=== PATIENT | female | born 1995 | race Caucasian/White ===

== ENCOUNTER 2021-07-08 21:23 | Inpatient (IN) | payer OTHER, SELFPAY ==
[2021-07-08] VITALS (44 sets, daily range): BP systolic 85–142; BP diastolic 60–97; PULSE 63–164; RESP 18; TEMP 36.9; O2SAT 96–100; BMI 36.7
[2021-07-08] MEDS: LACTATED RINGERS 1,000 ML 999 ML (21:57)
[2021-07-08 21:59] LABS: Basophils Percent Auto 0.2 % (0.2-1.2); Eosinophils Absolute Auto 0.1 K/mm3 (0-0.3); Eosinophils Percent Auto 0.9 % (0-4.4); Hematocrit 36.4 % (37.0-47.0); Hemoglobin 12.8 g/dL (12.0-15.0); Immature Granulocyte Absolute 0.04 K/mm3 (0.00-0.031); Immature Granulocyte Percent A 0.3 % (0-0.5); Lymphocytes Absolute Auto 2.27 K/mm3 (0.9-3.2); Lymphocytes Percent Auto 18.6 % (18.3-44.2); Mean Corpuscular HGB Conc 35.2 g/dl (32-36); Mean Corpuscular Hemoglobin 33.7 pg (26-34); Mean Corpuscular Volume 95.8 fl (80-100); Mean Platelet Volume 9.2 fl (7.4-10.4); Monocytes Absolute Auto 0.8 K/mm3 (0.1-0.6); Monocytes Percent Auto 6.8 % (2.6-8.5); Neutrophils Absolute Auto 8.9 K/mm3 (1.3-6.7); Neutrophils Percent Auto 73.2 % (45.5-73.1); Platelet Count Result 235 k/mm3 (150-375); Red Cell Distribution Width 12.9 % (11.5-14.5); White Blood Count 12.2 K/mm3 (4.5-10.0)
--- NOTE | 2021-07-08 22:06 | LDADM ---
This patient, Lisa Coates, was admitted to Labor/Delivery/Recovery 107 on 07/08/21 at 21:23. Plans for labor, pain management and were discussed with patient. Patient/family oriented to hospital policies and general routines including ID bracelet, bed and alarms, visiting hours, pain management, procedures, bathroom and other care routines, personal items, smoking policy, room service/diet and guest tray routines, security routines, and visiting hours. Patient/Family are encouraged to report perceived risks to care and to ask questions if they do not understand what they are told or what they should do. See OBIX for further documentation.
--- NOTE | 2021-07-08 22:34 | WPDANESEPPF ---
Anes - Initial Pre Proc Eval Procedure: labor epidural Date/Time: 07/08/21 22:34 Surgeon: Wally Argueta MD Pre Op Diagnosis: labor pain Pre Op Diagnosis: Leaking Fluid Patient Data Age: 26 Gender: F Height: 1.68 m Weight: 103.2 kg Last Vital Signs Temp 36.9 C 07/08/21 22:08 Pulse 72 07/08/21 22:34 Resp 18 07/08/21 22:08 BP 132/78 07/08/21 22:34 Pulse Ox 99 07/08/21 22:31 Allergies Allergy/AdvReac Type Severity Reaction Status Date / Time No Known Allergies Allergy Verified 07/01/21 12:35 Home Medications Medication Instructions Recorded Confirmed Type PNV cmb#95-ferrous fumarate-FA 1 tablet PO DAILY 07/01/21 07/08/21 History [] Laboratory Tests 07/08/21 07/08/21 21:49 21:49 WBC 12.2 K/mm3 H K/mm3 (4.5-10.0) RBC 3.80 M/mm3 L M/mm3 (4.2-5.4) Hgb 12.8 g/dL g/dL (12.0-15.0) Hct 36.4 % L % (37.0-47.0) MCV 95.8 fl fl (80-100) MCH 33.7 pg pg (26-34) MCHC 35.2 g/dl g/dl (32-36) RDW 12.9 % % (11.5-14.5) Plt Count 235 k/mm3 k/mm3 (150-375) MPV 9.2 fl fl (7.4-10.4) Immature Gran % (Auto) 0.3 % % (0-0.5) Neut % (Auto) 73.2 % H % (45.5-73.1) Lymph % (Auto) 18.6 % % (18.3-44.2) [place] % (Auto) 6.8 % % (2.6-8.5) Eos % (Auto) 0.9 % % (0-4.4) Baso % (Auto) 0.2 % % (0.2-1.2) Lymph # (Auto) 2.27 K/mm3 K/mm3 (0.9-3.2) [place] # (Auto) 0.8 K/mm3 H K/mm3 (0.1-0.6) Eos # (Auto) 0.1 K/mm3 K/mm3 (0-0.3) Baso # (Auto) 0.0 K/mm3 K/mm3 (0.0-0.1) Abs Immat Gran (auto) 0.04 K/mm3 H K/mm3 (0.00-0.031) Absolute Neuts (auto) 8.9 K/mm3 H K/mm3 (1.3-6.7) Absolute Nucleated RBC 0.0 K/mm3 K/mm3 (0.0-0.012) Nucleated RBC % 0.0 % % (0.0-0.2) RPR Pending Patient hx anesthesia problems: none Family hx anesthesia problems: none Results Review: All pre-operative results and documents have been reviewed as part of the pre-operative evaluation. [facility] Family History Family History (Updated 07/01/21 @ 12:36 by Leisa Garcia RN) Sibling Epilepsy Social History Social History Smoking status: Never smoker Substance use: never Spiritual care concerns: No Anes - Eval Final PreProcedure Day of Procedure 07/08/21 22:34 Patient weight: obese ASA classification: II Anesthetic plan: proceed Anesthesia type and monitoring: regional epidural and standard monitoring Results Review: All pre-operative results and documents have been reviewed as part of the pre-operative evaluation. Informed Consent: The patient's anesthetic plan and its attendant risks and benefits were discussed with the patient/family/POA. Questions were solicited and answers provided to the satisfaction of the patient/family/POA.
[2021-07-09] VITALS (57 sets, daily range): BP systolic 95–141; BP diastolic 52–90; PULSE 65–134; RESP 16–18; TEMP 36.4–37.2; O2SAT 97–100
--- NOTE | 2021-07-09 00:23 | PM.IMHP ---
H&P: HPI History of Present Illness Date/Time: 07/09/21 00:23 26-year-old 1 para 0 last menstrual period unknown, EDC is 07/19/2021 confirmed by 11 week ultrasound presents at term in active labor. Her has been uncomplicated she is negative for group B strep. She admission she 6cm and heart tones are reassuring she spontaneously ruptured on admission Chief Complaint: term in active labor Review of Systems Review of Systems: All systems reviewed & are unremarkable except as noted in HPI and below PMFSH Family History Family History Sibling Epilepsy Social History Social History Smoking status: Never smoker Substance use: never Spiritual care concerns: No Meds Home Medications and Allergies Home Medications Medication Instructions Recorded Confirmed Type PNV cmb#95-ferrous fumarate-FA 1 tablet PO DAILY 07/01/21 07/08/21 History [] Allergies Allergy/AdvReac Type Severity Reaction Status Date / Time No Known Allergies Allergy Verified 07/01/21 12:35 Vital Signs Vital Signs - 24 hr 07/08/21 21:46 07/08/21 22:01 07/08/21 22:02 Temperature Pulse Rate 95 77 66 Respiratory Rate Blood Pressure 124/87 113/91 H 134/87 Pulse Oximetry 07/08/21 22:08 07/08/21 22:16 07/08/21 22:21 Temperature 98.5 F Pulse Rate 83 Respiratory Rate 18 Blood Pressure 135/89 Pulse Oximetry 98 99 07/08/21 22:24 07/08/21 22:26 07/08/21 22:28 Temperature Pulse Rate 71 67 Respiratory Rate Blood Pressure 129/83 133/78 Pulse Oximetry 100 07/08/21 22:30 07/08/21 22:31 07/08/21 22:34 Temperature Pulse Rate 70 71 72 Respiratory Rate Blood Pressure 137/77 130/78 132/78 Pulse Oximetry 99 07/08/21 22:36 07/08/21 22:37 07/08/21 22:40 Temperature Pulse Rate 80 73 Respiratory Rate Blood Pressure 132/73 119/60 Pulse Oximetry 99 07/08/21 22:41 07/08/21 22:43 07/08/21 22:46 Temperature Pulse Rate 73 69 Respiratory Rate Blood Pressure 120/66 124/69 Pulse Oximetry 100 99 07/08/21 22:49 07/08/21 22:51 07/08/21 22:52 Temperature Pulse Rate 65 71 Respiratory Rate Blood Pressure 128/63 115/62 Pulse Oximetry 99 07/08/21 22:55 07/08/21 22:56 07/08/21 22:58 Temperature Pulse Rate 64 80 Respiratory Rate Blood Pressure 118/63 127/72 Pulse Oximetry 98 07/08/21 23:01 07/08/21 23:04 07/08/21 23:06 Temperature Pulse Rate 93 164 H Respiratory Rate Blood Pressure 120/64 85/66 L Pulse Oximetry 99 99 07/08/21 23:07 07/08/21 23:11 07/08/21 23:16 Temperature Pulse Rate 89 79 Respiratory Rate Blood Pressure 100/65 113/72 Pulse Oximetry 100 100 07/08/21 23:21 07/08/21 23:26 07/08/21 23:31 Temperature Pulse Rate 86 Respiratory Rate Blood Pressure 121/89 Pulse Oximetry 100 100 100 07/08/21 23:34 07/08/21 23:37 07/08/21 23:39 Temperature Pulse Rate Respiratory Rate Blood Pressure Pulse Oximetry 100 100 100 07/08/21 23:40 07/08/21 23:42 07/08/21 23:45 Temperature Pulse Rate Respiratory Rate Blood Pressure Pulse Oximetry 100 100 100 07/08/21 23:46 07/08/21 23:49 07/08/21 23:54 Temperature Pulse Rate Respiratory Rate Blood Pressure 142/97 H Pulse Oximetry 96 100 07/08/21 23:56 07/08/21 23:58 07/09/21 00:01 Temperature Pulse Rate 77 Respiratory Rate Blood Pressure 141/52 H Pulse Oximetry 98 98 07/09/21 00:03 07/09/21 00:08 07/09/21 00:13 Temperature Pulse Rate Respiratory Rate Blood Pressure Pulse Oximetry 100 100 100 07/09/21 00:18 Temperature Pulse Rate Respiratory Rate Blood Pressure Pulse Oximetry 100 Exam Const: General: no acute distress Eyes: General: appearance normal, both eyes and all related structu
--- NOTE | 2021-07-09 00:25 | PM.OBPRVD ---
OB - Delivery Note Procedure Delivery date: 07/09/21 Procedure: spontaneous vaginal delivery Intrapartal events: None Induction method: none Delivery monitor: external FHT Route of delivery: Episiotomy description: None Laceration Description: Perineal - 2nd Degree Delivery repair: vicryl Specimen: No Quantitative Blood Loss (ml): 58 Anesthesia type: Epidural Disposition: floor [place] Baby Date of : 07/09/21 Time of : 00:10 Weeks of gestation at delivery: 38 gender: Female Weight (pounds): 6 Weight (ounces): 11 presentation: vertex position: Right Occiput Anterior Placenta delivery description: Spontaneous cord vessel description: 3 Vessels score one minute: 9 score five minutes: 9
[2021-07-09] MEDS: LACTATED RINGERS 1,000 ML 125 ML IV CONT (00:48)
[2021-07-09] MEDS: OXYTOCIN 30 UNITS/NS 500 ML 30 UNITS/500 ML BAG 125 UNITS IV CONT ×2 (00:49→00:51)
[2021-07-09] MEDS: WITCH HAZEL 40 PADS 1 PAD TOPICAL (03:15)
[2021-07-09] MEDS: BENZOCAINE 20% AER SPR (*SP) 56 GM CAN 1 SPRAY TOPICAL (03:15)
--- NOTE | 2021-07-09 03:30 | OBPPTRN ---
Patient transferred to post room #286 via wheelchair. Support person present. Oriented to unit, room, information board, rooming in, admission packet and security measures. Patient verbalizes understanding.
--- NOTE | 2021-07-09 08:50 | PC.NURSE ---
Mother called out for assist with feeding. Mother reports infant is sleepy and makes eager attempts to latch with a few bursts of nursing. Mother used a nipple shield for the first feeding. Infant is able to freely thrust tongue past gum ridge and flange both lips. Skin is intact on both nipples, no redness and bruising noted. Nipple care reviewed of lanolin after feedings, warm compresses as needed. Reviewed infant feeding cues, frequencies, duration of feedings, feeding elimination flow sheet, and signs of adequate intake. Demonstrated stimulation techniques to wake infant for feeding. Assisted with to breast. Reviewed positioning/alignment in cross cradle, holding breast in ?U? hold and guided asymmetrical latch on. Reviewed rational for each. was unable to latch correctly or draw nipple in without shield. Discussed nipple shield use and how shield may assist with latch. Reviewed nipple shield precautions and possible complications. Instructions given on application and cleaning of shield. Patient able to return demonstration on proper application of shield. Discussed the need to initiate pumping if infant continues to nurse with the shield. Patient verbalizes understanding. With shield in place, infant able to latch correctly within a few attempts. nursed sleepily with a few bursts and and returning to sleep. Attempt for 15 minutes. Feeding options discussed, Feeding Plan is for mother to put infant to breast each feeding for up to 15 minutes, then pace feed supplement 20 mls and pump for 10-15 minutes. Parents are comfortable with supplementation and pumping. If infant begins to nurse effectively with long draws and frequent swallowing noted, may decrease supplementation and discontinue pumping. Suggested mother have LC test and research reactor operator observe feeding before discontinuing supplementation. Discussed increasing supplementation as infant requires to satisfactions. Reviewed paced feeding and suggested to stop when infant is satisfied, as long as is having required output. With increased supplementation may not want to feed for 4 hours. Mother will continue to pump on infant feeding schedule and will increase session to 20 minutes if pumping every 4 hours. Instructed mother to call out for RN assistance if she is unable to latch infant for feeding or she has discomfort with nursing. Instructed feeding should be initiated three hours from start of last feeding or if feeding cues are noted before. Mother voiced understanding of information shared.
[2021-07-09] MEDS: DOCUSATE SODIUM 100 MG CAPSULE PO (12:04)
[2021-07-09] MEDS: IBUPROFEN 600 MG TABLET PO (12:04)
--- NOTE | 2021-07-09 12:05 | PC.NURSE ---
Mother called out for assist with feeding. Assisted with to breast. Reviewed positioning/alignment in cross cradle, holding breast in ?U? hold and guided asymmetrical latch on. Reviewed rational for each. Infant was unable to latch correctly or draw nipple in without shield. With shield in place, infant able to latch correctly within a few attempts. nursed sleepily with a several bursts of suckling followed with long pausing. Advised to stimulate to keep infant awake and nursing for increased intake, increased stimulation and to assist with maintaining deep latch. Feeding options discussed, Feeding Plan is for mother to put infant to breast each feeding for up to 15 minutes, then pace feed supplement 20 mls and pump for 10-15 minutes. Parents are comfortable with supplementation and pumping. Discussed the difference of effective vs ineffective feeding. Reviewed requires supplementation after all feedings. She is latching with good burst of suckling, she is not feeding consistently with adequate milk transfer at this time and continues to need to be supplement after . Parents are comfortable with supplementation after feedings until infant is feeding effectively. Instructed mother to call out for RN assistance if she is unable to latch for feeding or she has discomfort with nursing. Instructed feeding should be initiated three hours from start of last feeding or if feeding cues are noted before. Mother voiced understanding of information shared.
--- NOTE | 2021-07-09 12:35 | PC.NURSE ---
Breast pump provided due to nipple shield use/ineffective feeding. Instructions given on breast pump care and usage, pumping schedule, nipple care, and collection and storage of breast milk. Encouraged [id number], breast massage and manual expression to stimulate supply. Assessed patient for correct flange size, placement and draw. Patient verbalizes and demonstrates understanding of instructions.
[2021-07-09] MEDS: ACETAMINOPHEN 325 MG TABLET 650 MG PO (21:56)
[2021-07-10 00:10] VITALS: BP 121/79; PULSE 77; RESP 16; TEMP 37.2; O2SAT 99
[2021-07-10] MEDS: WITCH HAZEL 40 PADS 1 PAD TOPICAL (01:23)
[2021-07-10] MEDS: DOCUSATE SODIUM 100 MG CAPSULE PO (03:03)
[2021-07-10] MEDS: IBUPROFEN 600 MG TABLET PO ×2 (04:09→13:42)
[2021-07-10 04:50] LABS: Hematocrit 32.3 % (37.0-47.0); Hemoglobin 10.7 g/dL (12.0-15.0)
--- NOTE | 2021-07-10 07:44 | PM.OBPNVD ---
OB - PN: Subj Subjective Date/time seen: 07/10/21 07:44 Patient comments: no complaints and pain well controlled baby status: doing well and nursing well OB - PN: Obj Data Labs CBC & Chem 7: 07/10/21 04:05 Labs: Laboratory Results - last 24 hr 07/10/21 04:05 Hgb 10.7 L Hct 32.3 L OB - PN A/P Plan day: 1 Plan: routine care Time Spent With Patient Time: Total time spent is greater than 50% in coordination of care (as documented) at patient's floor/unit and/or counseling patient: Time with patient: less than 15 minutes Review of Systems Review of Systems: All systems reviewed & are unremarkable except as noted in HPI and below Exam Const: General: no acute distress Eyes: General: appearance normal, both eyes and all related structures Neck: Neck: supple and no JVD Thyroid: thyroid normal Resp: Effort & Inspection: normal respiratory effort Auscultation: clear to auscultation bilaterally Cardio: Rate: regular rate Rhythm: regular rhythm GI: Inspection: non-distended GI Palp: Yes Soft to palpation, No Tenderness to palpation present (GI) and No Guarding due to palpation present (GI) Auscultation: normal bowel sounds : General: Yes bladder normal to palpation External Female Exam: normal external appearance Speculum Exam - Vagina: normal vaginal discharge and No vaginal bleeding Speculum Exam - Cervix: nontender Bimanual exam- vagina & uterus: bladder normal to palpation and No Cervical tenderness present OB/external & speculum: No vaginal bleeding Skin: General skin exam: no rashes or lesions noted Extrem: General: normal to inspection and no edema Psych: Mental Status: mental status grossly normal Affect: normal affect
[2021-07-10 08:00] VITALS: BP 100/68; PULSE 60; RESP 16; TEMP 36.4; O2SAT 98
--- NOTE | 2021-07-10 09:00 | PC.NURSE ---
Mother called out for assist with feeding. Mother reports infant is sleepy and makes eager attempts to latch with bursts of nursing and will then fall sleep at breast with nipple shield in her mouth. Mother is unable to latch infant without shield. Mother is supplementing after each feeding followed with 15 minutes of pumping. Left nipple has a scab line across nipple from shallow latch.. Nipple care reviewed of lanolin after feedings, warm compresses as needed, gel pads provided and reviewed care and cleaning. Reviewed feeding cues, frequencies, duration of feedings, feeding elimination flow sheet, and signs of adequate intake. Demonstrated stimulation techniques to wake for feeding. Assisted with infant to breast. Reviewed positioning/alignment in cross cradle, holding breast in ?U? hold and guided asymmetrical latch on. Reviewed rational for each. Infant was able/unable to latch correctly with shield. nursed eagerly, with steady draws for short burst and followed with long pausing. Reviewed signs of a correct latch, effective nursing and suck swallow ratio. Infant was able to maintain latch without discomfort to mother. Suggested mother stimulate while feeding to increase stimulate, increase intake and to assist with maintaining deep latch. Demonstrated how to adjust latch more deeply while feeding if needed. responded with bursts of suckling. Discussed the difference of effective vs ineffective feeding. Reviewed infant is latching with good burst of suckling, she is not feeding consistently with adequate milk transfer at this time and continues to need supplement after . Feeding Plan is for mother to put infant to breast each feeding for up to 15 minutes, then pace feed supplement 20 mls and pump for 10-15 minutes. Parents are comfortable with supplementation and pumping. If infant begins to nurse effectively with long draws and frequent swallowing noted, may decrease supplementation and discontinue pumping. Suggested mother have LC power brake operator observe feeding before discontinuing supplementation. Discussed increasing supplementation as infant requires to satisfactions. Reviewed paced feeding and suggested to stop when is satisfied, as long as infant is having required output. With increased supplementation infant may not want to feed for 4 hours. Mother will continue to pump on feeding schedule and will increase session to 20 minutes if pumping every 4 hours. Instructed mother to call out for RN assistance if she is unable to latch infant for feeding or she has discomfort with nursing. Instructed feeding should be initiated three hours from start of last feeding or if feeding cues are noted before. Mother voiced understanding of information shared
--- NOTE | 2021-07-10 09:59 | WPDANLDPN2 ---
Anes-Prog Note L&D Date/Time: 07/10/21 09:59 Comfortable throughout: labor and delivery Neuraxial method: epidural Epidural/Spinal procedure site: clean & non-tender Neuro status: Neuro function grossly intact. Cardiovascular status: normal Respiratory status: normal Airway patency: baseline Mental status: baseline Post-Op hydration status: normal Vital Signs: Last Vital Signs Temp 36.4 C 07/10/21 08:00 Pulse 60 07/10/21 08:00 Resp 16 07/10/21 08:00 BP 100/68 07/10/21 08:00 Pulse Ox 98 07/10/21 08:00 Pain score (VAS): 0 Post-procedural complaints: none Patient feedback: Patient satisfied with anesthetic care.
[2021-07-10 19:50] VITALS: BP 120/76; PULSE 72; RESP 16; TEMP 36.9; O2SAT 100
[2021-07-10] MEDS: MULTIVIT/MIN/PREN/FOL AC/IRON TABLET 1 TAB PO (21:26)
[2021-07-10] MEDS: ACETAMINOPHEN 325 MG TABLET 650 MG PO (21:36)
--- NOTE | 2021-07-10 21:50 | PC.NURSE ---
Patient viewed the discharge video Mother & Baby Care, The First Two Weeks . Patient was given the opportunity and encouraged to ask questions. Patient verbalized understanding of information shared and has been given the mother/baby guide for home reference.
--- NOTE | 2021-07-11 07:42 | PM.DS ---
DS: Admitting Diagnosis Discharge Date 07/10/2021 Admitting Diagnosis term in active labor DS: Summary Hospital Course Hospital Course: patient was admitted in active labor and underwent spontaneous vaginal delivery. Her hospital course unremarkable. For 48hours she remained afebrile. She was up, ambulating, voiding without difficulty, and generally without complaints Time Spent with Patient Time attestation: Total time spent providing and/or coordinating discharge services: Exam Const: General: no acute distress Eyes: General: appearance normal, both eyes and all related structures Neck: Neck: supple and no JVD Thyroid: thyroid normal Resp: Effort & Inspection: normal respiratory effort Auscultation: clear to auscultation bilaterally Cardio: Rate: regular rate Rhythm: regular rhythm GI: Inspection: non-distended GI Palp: Yes Soft to palpation, No Tenderness to palpation present (GI) and No Guarding due to palpation present (GI) Auscultation: normal bowel sounds : General: Yes bladder normal to palpation External Female Exam: normal external appearance Speculum Exam - Vagina: normal vaginal discharge and No vaginal bleeding Speculum Exam - Cervix: nontender Bimanual exam- vagina & uterus: bladder normal to palpation and No Cervical tenderness present OB/external & speculum: No vaginal bleeding Skin: General skin exam: no rashes or lesions noted Extrem: General: normal to inspection and no edema Psych: Mental Status: mental status grossly normal Affect: normal affect Discharge Plan Discharge Attending physician on discharge: Wally Argueta Discharging Clinician: Wally Argueta Patient Disposition: Home, Self-Care Activity: may shower, no straining and pelvic rest Diet: heart healthy Wound Care Instructions: follow printed instructions Patient Instructions: Antibiotic Form Stand Alone Forms: General Discharge Information Follow-up/Referrals: Wally Argueta MD [Physician] - Discharge Medications: Continued PNV cmb#95-ferrous fumarate-FA [] 28 mg iron- 800 mcg Tablet 1 tablet PO DAILY RF: 0 Date of admission: 07/08/21 21:23 Primary Care Provider: Rai Jacobson Admitting Provider: Wally Argueta Attending physician on admission: Wally Argueta Condition: Stable
--- NOTE | 2021-07-11 07:44 | PM.OBPNVD ---
OB - PN: Subj Subjective Date/time seen: 07/11/21 07:44 Patient comments: no complaints and pain well controlled baby status: doing well and nursing well OB - PN: Obj Data Labs CBC & Chem 7: 07/10/21 04:05 OB - PN A/P Plan day: 2 Plan: routine care, discharge home and follow up 6 weeks Time Spent With Patient Time: Total time spent is greater than 50% in coordination of care (as documented) at patient's floor/unit and/or counseling patient: Time with patient: less than 15 minutes Review of Systems Review of Systems: All systems reviewed & are unremarkable except as noted in HPI and below Exam Const: General: no acute distress Eyes: General: appearance normal, both eyes and all related structures Neck: Neck: supple and no JVD Thyroid: thyroid normal Resp: Effort & Inspection: normal respiratory effort Auscultation: clear to auscultation bilaterally Cardio: Rate: regular rate Rhythm: regular rhythm GI: Inspection: non-distended GI Palp: Yes Soft to palpation, No Tenderness to palpation present (GI) and No Guarding due to palpation present (GI) Auscultation: normal bowel sounds : General: Yes bladder normal to palpation External Female Exam: normal external appearance Speculum Exam - Vagina: normal vaginal discharge and No vaginal bleeding Speculum Exam - Cervix: nontender Bimanual exam- vagina & uterus: bladder normal to palpation and No Cervical tenderness present OB/external & speculum: No vaginal bleeding Skin: General skin exam: no rashes or lesions noted Extrem: General: normal to inspection and no edema Psych: Mental Status: mental status grossly normal Affect: normal affect
[2021-07-11] MEDS: MULTIVIT/MIN/PREN/FOL AC/IRON TABLET 1 TAB PO (08:10)
[2021-07-11] MEDS: DOCUSATE SODIUM 100 MG CAPSULE PO (08:10)
[2021-07-11] MEDS: IBUPROFEN 600 MG TABLET PO (08:10)
--- NOTE | 2021-07-11 08:30 | PC.NURSE ---
Observed mother is able to independently latch infant with appropriate positioning/alignment. She denies any nipple discomfort, is feeding as required and waking infant to feed if needed. is more awake and making eager attempts with and maintaining latch. Infant will eagerly nurse the first 5-10 minutes then fall asleep at breast maintaining good latch. Mother is attempting latch without shield infant is unable to latch and draw nipple in deeply. Mother will complete feeding using shield. has had a few effective feedings in the past 24 hours, all feedings infant is supplemented. Infant is currently meeting outcomes for weight, output, jaundice and feeding frequencies. Mother continues to pump after all feedings without difficulties or discomfort. Mother has a pump for home use, assisted mother with use before discharge. Mother is now pumping 20-30 mls each session. Discussed the difference of effective vs ineffective feeding. Reviewed requires supplementation after all feedings. She is latching with good burst of suckling, she is not feeding consistently with adequate milk transfer at this time and continues to need to be supplement after . Feeding plan discussed: Feeding Plan is for mother to put infant to breast each feeding for up to 15 minutes, then pace feed supplement 25-30 mls and pump for 10-15 minutes. Mother will allow infant to be at each breast up to 20 minutes if effective feeding is noted. Discussed increasing supplementation as infant requires to satisfactions. Reviewed paced feeding and suggested to stop when infant is satisfied, as long as infant is having required output. With increased supplementation may not want to feed for 4 hours. Mother will continue to pump on infant feeding schedule and will increase session to 20 minutes if pumping every 4 hours. If begins to nurse effectively with long draws and frequent swallowing noted, may decrease supplementation and discontinue pumping. Advised not to discontinue supplement until a pre/post feeding evaluation by infant PCP, Follow up RN or LC is completed. Mother states she feels confident to continue feeding plan at home. Reviewed transition to breast milk, signs of adequate intake, and engorgement/relief. Instructed to call ICP if intake/output less than required. Reviewed regular medications mother is taking. Information provided per Tarsha. Reviewed community resources on the [facility] website and in the Mom[employer]Baby guide. Information on outpatient services provided. Mother has no further questions at this time.
[2021-07-11 08:35] VITALS: BP 118/74; PULSE 81; RESP 18; TEMP 36.8; O2SAT 98
[2021-07-12 07:19] LABS: Rapid Plasma Reagin Non-Reactive (NonReactive)
[2021-07-12 08:20] VITALS: BP 114/78; PULSE 76; RESP 20; TEMP 36.8; O2SAT 100
== END 2021-07-11 11:33 | disposition home or self-care (01) | DRG 807 ==
LOC: ANHLDR 21:46 → ANHOB2 07-09 03:34
PROVIDERS: Admitting Provider Obstetrics & Gynecology; PCP Family Medicine; Visit Provider Obstetrics & Gynecology
DX: O70.1 Second degree perineal laceration during delivery (principal); Z37.0 Single live birth; Z3A.38 38 weeks gestation of pregnancy
CPT/HCPCS: 36415; 85014; 85018; 85025; 86592; 86850; 86900; 86901; A9270; J2590; J2795; J7120

== ENCOUNTER 2022-06-29 10:36 | Emergency (ER) | payer OTHER, SELFPAY ==
[2022-06-29 11:16] VITALS: BP 114/74; PULSE 85; RESP 18; TEMP 36.4; O2SAT 99
--- NOTE | 2022-06-29 11:58 | ED.URI ---
HPI - URI/Sore Throat General Chief Complaint: Upper Respiratory Infection Stated Complaint: Cough,Congestion Time Seen by Provider: 06/29/22 11:51 Source: patient Mode of arrival: ambulatory Limitations: no limitations History of Present Illness HPI Narrative: Patient presents today complaining of 4 day history of productive cough, rhinorrhea, headache, sore throat. Denies fevers shortness of breath. She has been taking Sudafed, Mucinex, and NyQuil without relief. Cough is keeping her awake at night. She reports daughter is also sick with similar symptoms. Related Data Home Medications Medication Instructions Recorded Confirmed vits no.126-ferrous fum 1 tablet PO DAILY 06/29/22 06/29/22 28 mg iron-folic acid 800 mcg tablet (Classic ) Allergies Allergy/AdvReac Type Severity Reaction Status Date / Time No Known Allergies Allergy Verified 06/29/22 11:37 Review of Systems Review of Systems: CONSTITUTIONAL: Denies body aches, fever, chills, or sweats. EYES: Denies visual changes, redness, or discharge. ENT: Denies congestion, or otalgia.+ sore throat, rhinorrhea CARDIOVASCULAR: Denies chest pain, palpitations, or edema. RESPIRATORY: Denies dyspnea.+ cough GASTROINTESTINAL: Denies abdominal pain, nausea, vomiting, or diarrhea. GENITOURINARY: Denies dysuria or hematuria. SKIN: Denies rash, itching, or wounds. MUSCULOSKELETAL: Denies back pain, joint pain, or myalgia. NEUROLOGIC: Denies numbness, tingling, or weakness.+ headache PSYCH: Denies depression or anxiety. [facility] Family History Family History Sibling Epilepsy Grandparent Family history of type 2 diabetes mellitus Social History Social History Smoking status: Never smoker Alcohol intake: current Substance use: never Spiritual care concerns: No Comments At time of signature, I have reviewed and agree with nursing past medical, surgical, social and family history unless otherwise noted. Please see nursing chart for further information. There is no relevant family history pertinent to the presenting complaint Exam Narrative: GENERAL: Mildly ill-appearing, well-nourished, and in no acute distress. HEAD: Normocephalic, atraumatic. EYES: EOMI. No redness or drainage. Conjunctivae normal. ENT: Mucous membranes pink and moist. Nares congested.. No rhinorrhea. TMs normal bilaterally. Throat mildly erythematous without edema or exudate. Tonsils 3+. Uvula midline. NECK: Normal AROM. Supple. No lymphadenopathy. CHEST: No respiratory distress. Clear to auscultation. HEART: Regular rate and rhythm. No murmur appreciated. Normal peripheral pulses. EXTREMITIES: Normal range of motion. No edema. SKIN: Warm, dry, no rash. Capillary refill normal. Normal skin turgor. NEURO: No focal deficits. Alert and oriented x3. Gait steady. PSYCH: Normal affect. No signs of depression or anxiety. Course Course Emergency Course: Declines swab for influenza and COVID-19 Level of Care: Express Care Visit Vital Signs Vital signs: Vital Signs Temperature 97.5 F L 06/29/22 11:16 Pulse Rate 85 06/29/22 11:16 Respiratory Rate 18 06/29/22 11:16 Blood Pressure 114/74 06/29/22 11:16 Pulse Oximetry 99 06/29/22 11:16 Oxygen Delivery Room Air 06/29/22 11:16 Temperature 97.5 F L 06/29/22 11:16 Pulse Rate 85 06/29/22 11:16 Respiratory Rate 18 06/29/22 11:16 Blood Pressure 114/74 06/29/22 11:16 Pulse Oximetry 99 06/29/22 11:16 Oxygen Delivery Room Air 06/29/22 11:16 Reviewed MDM - URI/Sore Throat Differential Diagnosis Differential diagnosis: Likely upper respiratory infection, sinusitis, viral infection, influenza, pharyngitis and other (Strep throat, COVID-19) Lab Data Attestation: I reviewed the patient's lab results. Lab results narrative: Rapid strep negative Criti
== END 2022-06-29 12:03 | disposition home or self-care (01) ==
PROVIDERS: Emergency Provider Nurse Practitioner; PCP Family Medicine
DX: J06.9 Acute upper respiratory infection, unspecified (principal); J40 Bronchitis, not specified as acute or chronic
CPT/HCPCS: 87081; 87880; 99213; G0463

== ENCOUNTER 2023-07-21 14:52 | Inpatient (IN) | payer OTHER, SELFPAY ==
[2023-07-21] VITALS (43 sets, daily range): BP systolic 85–147; BP diastolic 42–98; PULSE 55–226; RESP 16; TEMP 36.4–36.7; O2SAT 96–100; BMI 39.4
--- NOTE | 2023-07-21 14:52 | LDADM ---
This patient, Lisa Coates, was admitted to Labor/Delivery/Recovery 105 on 07/21/23 at 14:52. Plans for labor, pain management and were discussed with patient. Patient/family oriented to hospital policies and general routines including ID bracelet, bed and alarms, visiting hours, pain management, procedures, bathroom and other care routines, personal items, smoking policy, room service/diet and guest tray routines, security routines, and visiting hours. Patient/Family are encouraged to report perceived risks to care and to ask questions if they do not understand what they are told or what they should do. See [facility]BI[facility] for further documentation.
[2023-07-21 16:44] LABS: Basophils Percent Auto 0.2 % (0.2-1.2); Eosinophils Absolute Auto 0.1 K/mm3 (0-0.3); Eosinophils Percent Auto 0.8 % (0-4.4); Hematocrit 40.4 % (37.0-47.0); Immature Granulocyte Absolute 0.04 K/mm3 (0.00-0.031); Immature Granulocyte Percent A 0.3 % (0-0.5); Lymphocytes Absolute Auto 2.36 K/mm3 (0.9-3.2); Mean Corpuscular HGB Conc 32.2 g/dl (32-36); Mean Corpuscular Hemoglobin 31.6 pg (26-34); Mean Corpuscular Volume 98.1 fl (80-100); Mean Platelet Volume 9.4 fl (7.4-10.4); Monocytes Absolute Auto 0.8 K/mm3 (0.1-0.6); Monocytes Percent Auto 6.5 % (2.6-8.5); Neutrophils Absolute Auto 8.5 K/mm3 (1.3-6.7); Neutrophils Percent Auto 72.2 % (45.5-73.1); Platelet Count Result 246 k/mm3 (150-375); Red Blood Count 4.12 M/mm3 (4.2-5.4); White Blood Count 11.8 K/mm3 (4.5-10.0)
--- NOTE | 2023-07-21 16:47 | PM.IMHP ---
H&P: HPI History of Present Illness Date/Time: 07/21/23 16:47 Chief Complaint: Labor at term Narrative: this is a 28-year-old 2 para 1 whose last menstrual period was 10/22/2022, EDC is 07/29/2023, who presents at 38-,6/7 weeks gestation in active labor. Her has been uncomplicated. She had an abnormal diabetic screen before over 4 3hour GTT. She is negative for group B strep PMFSH Past Medical History Medical History BMI 32.0-32.9,adult Family History Family History Sibling Epilepsy Grandparent Family history of type 2 diabetes mellitus Father Family history of type 2 diabetes mellitus Mother Hypertension Social History Social History Smoking status: Never smoker Alcohol intake: current Substance use: never Spiritual care concerns: No Meds Home Medications and Allergies Home Medications Medication Instructions Recorded Confirmed Type vits no.126-ferrous fum 1 tablet PO DAILY 06/29/22 06/29/23 History 28 mg iron-folic acid 800 mcg tablet (Classic ) Allergies Allergy/AdvReac Type Severity Reaction Status Date / Time No Known Allergies Allergy Verified 06/29/23 14:32 Exam Const: General: cooperative, healthy appearing and comfortable Nutritional Appearance: average body habitus Orientation/consciousness: oriented to person, oriented to place and oriented to time Resp: Effort & Inspection: normal respiratory effort Cardio: Rate: regular rate Rhythm: regular rhythm Heart sounds: S1 normal heart sound present and S2 normal heart sound present GI: Inspection: normal to inspection ( gravid soft uterus) : External Female Exam: normal external appearance Speculum Exam - Vagina: normal appearance of the vagina Speculum Exam - Cervix: normal appearance of the cervix ( cervix 5/80/2. AROM clear. FHTs reassuring) H&P: Results Labs Labs: Short CBC 07/21/23 Range/Units 16:38 WBC 11.8 H (4.5-10.0) K/mm3 Hgb 13.0 (12.0-15.0) g/dL Hct 40.4 (37.0-47.0) % Plt Count 246 (150-375) k/mm3 Assessment and Plan Assessment and plan (1) Term : Code(s): Z34.90 - Encounter for supervision of normal , unspecified, unspecified trimester Status: Acute Plan spontaneous vaginal delivery is expected. She is an epidural candidate
[2023-07-21] MEDS: LACTATED RINGERS 1,000 ML 125 ML IV CONT ×3 (17:38→19:38)
--- NOTE | 2023-07-21 18:41 | WPDANESEPPF ---
Anes - Initial Pre Proc Eval Date/Time: 07/21/23 18:41 Surgeon: Wally Arellano MD Pre Op Diagnosis: labor Patient Data Age: 28 Gender: F Height: 1.68 m Weight: 111 kg Last Vital Signs Temp 36.4 C 07/21/23 17:19 Pulse 226 H 07/21/23 18:40 BP 133/83 07/21/23 18:40 Pulse Ox 99 07/21/23 18:37 Allergies Allergy/AdvReac Type Severity Reaction Status Date / Time No Known Allergies Allergy Verified 06/29/23 14:32 Home Medications Medication Instructions Recorded Confirmed Type vits no.126-ferrous fum 1 tablet PO DAILY 06/29/22 06/29/23 History 28 mg iron-folic acid 800 mcg tablet (Classic ) Laboratory Tests 07/21/23 16:38 WBC 11.8 H K/mm3 (4.5-10.0) RBC 4.12 L M/mm3 (4.2-5.4) Hgb 13.0 g/dL (12.0-15.0) Hct 40.4 % (37.0-47.0) MCV 98.1 fl (80-100) MCH 31.6 pg (26-34) MCHC 32.2 g/dl (32-36) RDW 14.0 % (11.5-14.5) Plt Count 246 k/mm3 (150-375) MPV 9.4 fl (7.4-10.4) Immature Gran % (Auto) 0.3 % (0-0.5) Neut % (Auto) 72.2 % (45.5-73.1) Lymph % (Auto) 20.0 % (18.3-44.2) [place] % (Auto) 6.5 % (2.6-8.5) Eos % (Auto) 0.8 % (0-4.4) Baso % (Auto) 0.2 % (0.2-1.2) Lymph # (Auto) 2.36 K/mm3 (0.9-3.2) [place] # (Auto) 0.8 H K/mm3 (0.1-0.6) Eos # (Auto) 0.1 K/mm3 (0-0.3) Baso # (Auto) 0.0 K/mm3 (0.0-0.1) Abs Immat Gran (auto) 0.04 H K/mm3 (0.00-0.031) Absolute Neuts (auto) 8.5 H K/mm3 (1.3-6.7) Absolute Nucleated RBC 0.0 K/mm3 (0.0-0.012) Nucleated RBC % 0.0 % (0.0-0.2) RPR Pending Blood Type O Positive Antibody Screen Negative Patient hx anesthesia problems: none Family hx anesthesia problems: none Results Review: All pre-operative results and documents have been reviewed as part of the pre-operative evaluation. [facility] Past Medical History Medical History BMI 32.0-32.9,adult Family History Family History Sibling Epilepsy Grandparent Family history of type 2 diabetes mellitus Father Family history of type 2 diabetes mellitus Mother Hypertension Social History Social History Smoking status: Never smoker Alcohol intake: current Substance use: never Lack of Transportation: No Lack of Food: Never True Current Housing: I Have Housing Concerned About Future Housing: No Difficulty Paying Gas/Electric Bills: No Difficulty Paying for Meds: No Currently Unemployed: No Education: Master's Degree or Higher Difficulty w/ Childcare or Family Care: No Spiritual care concerns: No Anes - Eval Final PreProcedure Day of Procedure 07/21/23 18:41 Patient weight: morbidly obese Neurological: alert and oriented ASA classification: III Emergent: no Anesthetic plan: proceed Anesthesia type and monitoring: regional epidural and standard monitoring Results Review: All pre-operative results and documents have been reviewed as part of the pre-operative evaluation. Informed Consent: The patient's anesthetic plan and its attendant risks and benefits were discussed with the patient/family/POA. Questions were solicited and answers provided to the satisfaction of the patient/family/POA.
[2023-07-21] MEDS: ePHEDrine sulfate INJ 50 MG/ML AMPUL IV PUSH (18:52)
[2023-07-21] MEDS: OXYTOCIN 30 UNITS/NS 500 ML 30 UNITS/500 ML BAG 999 UNITS IV CONT (19:59)
--- NOTE | 2023-07-21 20:08 | PM.OBPRVD ---
OB - Vaginal Delivery Note Procedure Delivery date: 07/21/23 Induction method: None Delivery monitor: External FHT and External Uterine Route of delivery: Episiotomy description: None Laceration Description: Perineal - 1st Degree Delivery repair: vicryl Specimen: No Quantitative Blood Loss (ml): 60 Anesthesia type: Epidural Disposition: Floor Complications: No immediate complications [place] Baby Date of : 07/21/23 Time of : 19:55 Weeks of gestation at delivery: 38 Infant gender: Male presentation: vertex position: Right Occiput Anterior Placenta delivery description: Spontaneous Cord Vessel Description: 3 Vessels score one minute: 8 score five minutes: 9
--- NOTE | 2023-07-21 20:10 | P.DS_ITS ---
DS: Admitting Diagnosis Discharge Date 07/23/2023 Admitting Diagnosis DS: Discharge Diagnosis Discharge Diagnosis (1) Term : Code(s): Z34.90 - Encounter for supervision of normal , unspecified, unspecified trimester Status: Acute DS: Summary Hospital Course Reason for hospitalization: labor at term Hospital Course: patient was admitted to Labor lived 2022. She underwent spontaneous vaginal delivery which was unremarkable. Hospital course unremarkable. She remained afebrile. She was up, voiding without difficulty, eating were diet, ambulating, generally without complaints. Time Spent with Patient Time attestation: Total time spent providing and/or coordinating discharge services: Exam Const: General: cooperative, healthy appearing and comfortable Nutritional Appearance: average body habitus Orientation/consciousness: oriented to person, oriented to place and oriented to time HENMT: Head: normal to inspection Resp: Effort & Inspection: normal respiratory effort Cardio: Rate: regular rate Rhythm: regular rhythm Heart sounds: S1 normal heart sound present and S2 normal heart sound present GI: Inspection: normal to inspection DS: Data Data Completed and Pending Labs on day of discharge: Labs from last 24 hours 07/21/23 16:38 WBC 11.8 H RBC 4.12 L Hgb 13.0 Hct 40.4 MCV 98.1 MCH 31.6 MCHC 32.2 RDW 14.0 Plt Count 246 MPV 9.4 Immature Gran % (Auto) 0.3 Neut % (Auto) 72.2 Lymph % (Auto) 20.0 [place] % (Auto) 6.5 Eos % (Auto) 0.8 Baso % (Auto) 0.2 Lymph # (Auto) 2.36 [place] # (Auto) 0.8 H Eos # (Auto) 0.1 Baso # (Auto) 0.0 Abs Immat Gran (auto) 0.04 H Absolute Neuts (auto) 8.5 H Absolute Nucleated RBC 0.0 Nucleated RBC % 0.0 RPR Pending Blood Type O Positive Antibody Screen Negative Discharge Plan Discharge Attending physician on discharge: Wally Marc Discharging Clinician: Wally Marc Patient Disposition: Home, Self-Care Activity: may shower and pelvic rest Diet: heart healthy Wound Care Instructions: follow printed instructions Patient Instructions: Antibiotic Form Stand Alone Forms: General Discharge Information Follow-up/Referrals: Wally Marc MD [Physician] - Discharge Medications: No Action Classic 28 mg iron- 800 mcg Tablet 1 tablet PO DAILY Date of admission: 07/21/23 14:52 Primary Care Provider: Rai Jacobson Admitting Provider: Wally Marc Attending physician on admission: Wally Marc Condition: Stable
[2023-07-21] MEDS: OXYTOCIN 30 UNITS/NS 500 ML 30 UNITS/500 ML BAG 125 UNITS IV CONT (20:31)
[2023-07-21] MEDS: BENZOCAINE 20% AER SPR (*SP) 56 GM CAN 1 SPRAY TOPICAL (22:07)
[2023-07-21] MEDS: WITCH HAZEL 40 PADS 1 PAD TOPICAL (22:07)
--- NOTE | 2023-07-21 22:21 | OBPPTRN ---
Patient transferred to post room # 288 via wheelchair. Support person present. Oriented to unit, room, information board, rooming in, admission packet and security measures. Patient verbalizes understanding.
[2023-07-22 04:30] VITALS: BP 124/82; PULSE 88; RESP 16; TEMP 36.9; O2SAT 100
[2023-07-22 05:07] LABS: Hematocrit 35.5 % (37.0-47.0); Hemoglobin 11.7 g/dL (12.0-15.0)
--- NOTE | 2023-07-22 06:33 | PM.OBPNVD ---
OB - PN: Subj Subjective Date/time seen: 07/22/23 06:34 Interval history: desires circ for son Patient comments: no complaints and pain well controlled [place] baby status: doing well OB - PN: Obj Data Labs 07/22/23 04:35 Labs: Laboratory Results - last 24 hr 07/21/23 07/22/23 16:38 04:35 WBC 11.8 H RBC 4.12 L Hgb 13.0 11.7 L Hct 40.4 35.5 L MCV 98.1 MCH 31.6 MCHC 32.2 RDW 14.0 Plt Count 246 MPV 9.4 Immature Gran % (Auto) 0.3 Neut % (Auto) 72.2 Lymph % (Auto) 20.0 [place] % (Auto) 6.5 Eos % (Auto) 0.8 Baso % (Auto) 0.2 Lymph # (Auto) 2.36 [place] # (Auto) 0.8 H Eos # (Auto) 0.1 Baso # (Auto) 0.0 Abs Immat Gran (auto) 0.04 H Absolute Neuts (auto) 8.5 H Absolute Nucleated RBC 0.0 Nucleated RBC % 0.0 Blood Type O Positive Antibody Screen Negative OB - PN A/P Plan day: 1 Plan: routine care Time Spent With Patient Time: Total time spent is greater than 50% in coordination of care (as documented) at patient's floor/unit and/or counseling patient: Time with patient: less than 15 minutes Exam Const: General: cooperative, healthy appearing and comfortable Nutritional Appearance: average body habitus Orientation/consciousness: oriented to person, oriented to place and oriented to time HENMT: Head: normal to inspection Resp: Effort & Inspection: normal respiratory effort GI: Inspection: normal to inspection (Fundus firm below the umbilicus)
[2023-07-22] MEDS: DOCUSATE SODIUM 100 MG CAPSULE PO ×2 (08:51→17:31)
[2023-07-22] MEDS: MULTIVIT/MIN/PREN/FOL AC/IRON TABLET 1 TAB PO (08:51)
[2023-07-22 08:59] VITALS: BP 125/79; PULSE 100; RESP 18; TEMP 36.6; O2SAT 97
[2023-07-22 10:49] LABS: Rapid Plasma Reagin Non-Reactive (NonReactive)
--- NOTE | 2023-07-22 11:56 | PC.NURSE ---
[id number] Introductions were made. mother is putting her to breast independently, has a plan to pump and feed only at home, denies pain and questions.
[2023-07-22 12:00] VITALS: BP 118/80; PULSE 86; RESP 16; TEMP 37.2; O2SAT 96
[2023-07-22] MEDS: IBUPROFEN 600 MG TABLET PO ×2 (12:33→20:35)
[2023-07-22 15:30] VITALS: BP 102/65; PULSE 65; RESP 16; TEMP 36.8; O2SAT 98
[2023-07-22 20:00] VITALS: BP 124/80; PULSE 76; RESP 18; TEMP 36.8; O2SAT 99
--- NOTE | 2023-07-23 06:45 | P.PNOB_ITS ---
OB - PN: Subj Subjective Date/time seen: 07/23/23 06:45 Interval history: desires circ for son Patient comments: no complaints and pain well controlled [place] baby status: doing well and nursing well OB - PN: Obj Data Labs 07/22/23 04:35 Labs: Laboratory Results - last 24 hr 07/21/23 16:38 RPR Non-reactive OB - PN A/P Plan day: 2 Plan: routine care Time Spent With Patient Time: Total time spent is greater than 50% in coordination of care (as documented) at patient's floor/unit and/or counseling patient: Time with patient: less than 15 minutes Exam Const: General: cooperative, healthy appearing and comfortable Nutritional Appearance: average body habitus Orientation/consciousness: oriented to person, oriented to place and oriented to time Resp: Effort & Inspection: normal respiratory effort Cardio: Rate: regular rate Rhythm: regular rhythm Heart sounds: S1 normal heart sound present and S2 normal heart sound present GI: Inspection: normal to inspection
[2023-07-23 08:20] VITALS: BP 121/84; PULSE 62; RESP 18; TEMP 37.6; O2SAT 99
[2023-07-23] MEDS: MULTIVIT/MIN/PREN/FOL AC/IRON TABLET 1 TAB PO (08:44)
[2023-07-23] MEDS: DOCUSATE SODIUM 100 MG CAPSULE PO (08:44)
[2023-07-23] MEDS: IBUPROFEN 600 MG TABLET PO (08:44)
[2023-07-24 10:28] VITALS: BP 117/74; PULSE 90; RESP 18; TEMP 36.9; O2SAT 100
== END 2023-07-23 11:50 | disposition home or self-care (01) | DRG 807 ==
LOC: ANHLDR 20:12 → ANHOB2 22:32
PROVIDERS: Admitting Provider Obstetrics & Gynecology; PCP Family Medicine; Visit Provider Obstetrics & Gynecology
DX: O69.81X0 Labor and delivery complicated by cord around neck, without compression, not applicable or unspecified (principal); Z37.0 Single live birth; O70.0 First degree perineal laceration during delivery; Z3A.38 38 weeks gestation of pregnancy
CPT/HCPCS: 36415; 85014; 85018; 85025; 86592; 86850; 86900; 86901; A9270; J2590; J2795; J7120